=== PATIENT | female | born 2000 | race Caucasian/White ===

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

== ENCOUNTER 2024-06-16 12:19 | Emergency (ER) | payer BC ==
[2024-06-16] MEDS ORDERED: Sodium Chloride 0.9% 10 ML Syringe FLUSH PRN (12:20)
[2024-06-16 12:46] LABS: BASOPHILS ABSOLUTE AUTO 0.02 K/uL (0.00-0.20); BASOPHILS PERCENT AUTO 0.2 % (0.0-1.0); EOSINOPHILS ABSOLUTE AUTO 0.01 K/uL (0.00-0.45); EOSINOPHILS PERCENT AUTO 0.1 % (0.0-6.0); HEMATOCRIT 38.6 % (37.0-47.0); HEMOGLOBIN 13.5 g/dL (12.0-16.0); IMMATURE GRAN ABSOLUTE AUTO 0.02 K/uL (0.00-0.05); IMMATURE GRAN PERCENT AUTO 0.2 % (0.0-0.4); LYMPHOCYTES ABSOLUTE AUTO 0.75 K/uL (1.00-4.80); LYMPHOCYTES PERCENT AUTO 8.4 % (24.0-44.0); MEAN CORPUSCULAR HEMOGLOBIN 29.9 pg (28.0-32.0); MEAN CORPUSCULAR VOLUME 85.4 fL (83.0-99.0); MEAN PLATELET VOLUME 9.1 fL (9.4-12.3); MONOCYTES ABSOLUTE AUTO 0.76 K/uL (0.00-0.80); MONOCYTES PERCENT AUTO 8.6 % (0.0-8.0); NEUTROPHILS ABSOLUTE AUTO 7.32 K/uL (1.80-7.70); NEUTROPHILS PERCENT AUTO 82.5 % (41.0-71.0); PLATELET COUNT,PLT 227 K/uL (150-400); RED BLOOD CELL COUNT 4.52 M/uL (4.10-5.30); WHITE BLOOD CELL COUNT,WBC 8.88 K/uL (3.9-11.3)
[2024-06-16 13:28] LABS: A/G RATIO 0.7 (0.9-1.6); ALANINE AMINOTRANSFERASE,ALT 23 IU/L (14-63); ALBUMIN 3.3 g/dL (3.4-5.0); ALKALINE PHOSPHATASE 67 U/L (46-116); ASPARTATE AMNIOTRANSFERASE,AST 14 IU/L (15-37); BILIRUBIN TOTAL 0.5 mg/dL (0.2-1.0); BLOOD UREA NITROGEN,BUN 5 mg/dL (7.0-18.0); CALCIUM 9.3 mg/dL (8.5-10.1); CARBON DIOXIDE,CO2 23.4 mmol/L (21.0-32.0); CHLORIDE,CL 100 mmol/L (98-107); CREATININE 0.7 mg/dL (0.6-1.0); GLUCOSE RANDOM 122 mg/dL (74-106); LIPASE 120 U/L (16-77); POTASSIUM,K 3.9 mmol/L (3.5-5.1); PROTEIN TOTAL,TP 8.2 g/dL (6.4-8.2); SODIUM,NA 134 mmol/L (136-145)
[2024-06-16 13:29] LABS: ESTIMATED GFR 125 mL/min (>60)
[2024-06-16] MEDS: Ondansetron 4 MG Tab.DIS PO ONE (16:33)
[2024-06-16] MEDS: Sodium Chloride 0.9% 1,000 ML IV ONE (16:33)
== END 2024-06-16 17:20 | disposition home or self-care (01) ==
LOC: MW.ED 12:19
DX: O21.9 Vomiting of pregnancy, unspecified (principal); Z3A.11 11 weeks gestation of pregnancy; Z75.8 Other problems related to medical facilities and other health care
CPT/HCPCS: 36415; 80053; 83690; 84702; 85025; 96360; 99284; A9270; J7030; 99283

== ENCOUNTER 2024-06-29 14:01 | Emergency (ER) | payer BC ==
[2024-06-29] MEDS: Ondansetron 4 MG/2 ML SDV IVPUSH ONE ×2 (14:50→18:39)
[2024-06-29] MEDS: Dextrose 5%-0.9% NaCl 1,000 ML IV STA ×2 (14:50→18:40)
[2024-06-29 15:27] LABS: BASOPHILS ABSOLUTE AUTO 0.02 K/uL (0.00-0.20); BASOPHILS PERCENT AUTO 0.1 % (0.0-1.0); HEMATOCRIT 37.1 % (37.0-47.0); HEMOGLOBIN 12.9 g/dL (12.0-16.0); IMMATURE GRAN ABSOLUTE AUTO 0.05 K/uL (0.00-0.05); IMMATURE GRAN PERCENT AUTO 0.4 % (0.0-0.4); LYMPHOCYTES ABSOLUTE AUTO 1.33 K/uL (1.00-4.80); LYMPHOCYTES PERCENT AUTO 9.9 % (24.0-44.0); MEAN CORPUSCULAR HEMOGLOBIN 29.7 pg (28.0-32.0); MEAN CORPUSCULAR HGB CONC 34.8 g/dL (32.0-36.0); MEAN CORPUSCULAR VOLUME 85.5 fL (83.0-99.0); MEAN PLATELET VOLUME 9.6 fL (9.4-12.3); MONOCYTES ABSOLUTE AUTO 0.51 K/uL (0.00-0.80); MONOCYTES PERCENT AUTO 3.8 % (0.0-8.0); NEUTROPHILS ABSOLUTE AUTO 11.55 K/uL (1.80-7.70); NEUTROPHILS PERCENT AUTO 85.8 % (41.0-71.0); PLATELET COUNT,PLT 280 K/uL (150-400); RED BLOOD CELL COUNT 4.34 M/uL (4.10-5.30); WHITE BLOOD CELL COUNT,WBC 13.46 K/uL (3.9-11.3)
[2024-06-29 16:11] LABS: A/G RATIO 0.7 (0.9-1.6); ALBUMIN 3.3 g/dL (3.4-5.0); BILIRUBIN TOTAL 0.6 mg/dL (0.2-1.0); CALCIUM 9.4 mg/dL (8.5-10.1); CARBON DIOXIDE,CO2 15.4 mmol/L (21.0-32.0); CREATININE 0.6 mg/dL (0.6-1.0); EST CRCL DRUG DOSING (CG) 137.68 mL/min; POTASSIUM,K 3.7 mmol/L (3.5-5.1); PROTEIN TOTAL,TP 8.2 g/dL (6.4-8.2)
[2024-06-29] MEDS: Sodium Chloride 0.9% 1,000 ML IV ONE (16:21)
[2024-06-29 18:10] LABS: APPEARANCE,URINE CLEAR; BILIRUBIN,URINE NEGATIVE (NEGATIVE); COLOR,URINE YELLOW; GLUCOSE,URINE 500 mg/dL (NEGATIVE); KETONES,URINE >=80 mg/dL (NEGATIVE); LEUKOCYTE ESTERASE,URINE NEGATIVE (NEGATIVE); NITRITE,URINE NEGATIVE (NEGATIVE); OCCULT BLOOD,URINE NEGATIVE (NEGATIVE); PROTEIN,URINE NEGATIVE (NEGATIVE); UROBILINOGEN,URINE 0.2 EU/dL (<2.0)
== END 2024-06-29 18:48 | disposition home or self-care (01) ==
LOC: MW.ED 14:01
DX: O21.0 Mild hyperemesis gravidarum (principal); Z75.8 Other problems related to medical facilities and other health care
CPT/HCPCS: 36415; 80053; 81003; 84702; 85025; 96361; 96374; 96376; 99284; J2405; J7030; J7042

== ENCOUNTER 2024-12-23 05:38 | Inpatient (IN) | payer BC ==
[2024-12-23] MEDS ORDERED: Carboprost Tromethamine 250 MCG/1 mL Vial IM PRN (05:42)
[2024-12-23] MEDS ORDERED: Sodium Chloride 0.9% 2.5 ML Syringe FLUSH PRN (05:42)
[2024-12-23] MEDS ORDERED: Sodium Chloride 0.9% 10 ML Syringe FLUSH PRN (05:42)
[2024-12-23] MEDS ORDERED: Water For Irrigation,Sterile 1,000 ML Container IRR PRN (05:42)
[2024-12-23] MEDS ORDERED: Sodium Chloride 0.9% 20 ML SDV IV PRN (05:42)
[2024-12-23] MEDS ORDERED: Misoprostol 200 MCG Tab PO PRN (05:42)
[2024-12-23] MEDS ORDERED: Methylergonovine 0.2 MG/1 ML Amp IM PRN (05:42)
[2024-12-23] MEDS ORDERED: Lidocaine 1% 50 ML MDV INJECT PRN (05:42)
[2024-12-23] MEDS ORDERED: Oxytocin/0.9 % Sodium Chloride 30 UNIT/500 ML BAG IV SCH (05:45)
[2024-12-23 06:56] LABS: HEMATOCRIT 33.9 % (37.0-47.0); HEMOGLOBIN 10.9 g/dL (12.0-16.0); MEAN CORPUSCULAR HEMOGLOBIN 28.2 pg (28.0-32.0); MEAN CORPUSCULAR HGB CONC 32.2 g/dL (32.0-36.0); MEAN CORPUSCULAR VOLUME 87.8 fL (83.0-99.0); MEAN PLATELET VOLUME 10.7 fL (9.4-12.3); PLATELET COUNT,PLT 288 K/uL (150-400); RED BLOOD CELL COUNT 3.86 M/uL (4.10-5.30); WHITE BLOOD CELL COUNT,WBC 13.71 K/uL (3.9-11.3)
[2024-12-23] MEDS ORDERED: Misoprostol 25 MCG (1/4 of 100 MCG) Tab PO ONE (07:20)
[2024-12-23 07:32] LABS: A/G RATIO 0.5 (0.9-1.6); ALBUMIN 2.3 g/dL (3.4-5.0); BILIRUBIN TOTAL 0.2 mg/dL (0.2-1.0); CALCIUM 8.2 mg/dL (8.5-10.1); CARBON DIOXIDE,CO2 21.2 mmol/L (21.0-32.0); CREATININE 0.6 mg/dL (0.6-1.0); POTASSIUM,K 3.7 mmol/L (3.5-5.1); PROTEIN TOTAL,TP 6.9 g/dL (6.4-8.2)
[2024-12-23] MEDS: Misoprostol 25 MCG (1/4 of 100 MCG) Tab VAG ONE (07:55)
[2024-12-23] MEDS: Misoprostol 25 MCG (1/4 of 100 MCG) Tab VAG SCH (12:05)
[2024-12-24] MEDS: Lactated Ringers 1,000 ML IV SCH (01:05)
[2024-12-24] MEDS: Butorphanol 1 MG/ML SDV IVPUSH PRN (02:57)
[2024-12-24] MEDS: Ropivacaine HCl/PF 400 MG in Premix Bag 1 BAG EPIDUR SCH (06:45)
[2024-12-24] MEDS: Oxytocin/0.9 % Sodium Chloride 30 UNIT/500 ML BAG IV SCH (06:53)
[2024-12-24] MEDS ORDERED: ePHEDrine 50 MG/ML SDV IVPUSH PRN (06:58)
[2024-12-24] MEDS ORDERED: ePHEDrine 50 MG/ML SDV IM PRN (06:58)
[2024-12-24] MEDS ORDERED: dexmedeTOMIDine HCl 200 MCG/2 ML SDV EPIDUR SCH (07:00)
[2024-12-24] MEDS: Ondansetron 4 MG/2 ML SDV IVPUSH PRN (07:36)
[2024-12-24] MEDS: Phenylephrine HCl In 0.9% NaCl 1 MG/10 ML Syringe IVPUSH PRN (14:07)
[2024-12-24] MEDS: Ropivacaine HCl/PF 200 ML ONE (18:32)
[2024-12-24] MEDS: Phenylephrine HCl In 0.9% NaCl 1 MG/10 ML Syringe ONE (18:32)
[2024-12-24] MEDS: Bupivacaine 0.5% 10 ML SDV ONE (18:33)
[2024-12-24] MEDS: Citric Acid/Sodium Citrate Solution 30 ML Cup PO ONE ×2 (18:36→23:45)
[2024-12-25] MEDS ORDERED: Bupivacaine 0.5% 10 ML SDV ONE (02:22)
[2024-12-25] MEDS ORDERED: fentaNYL 100 MCG/2 ML SDV ONE (02:22)
[2024-12-25] MEDS ORDERED: Lidocaine 2% 5 ML SDV ONE (02:22)
[2024-12-25] MEDS ORDERED: Docusate Sodium 100 MG Cap PO PRN (10:38)
[2024-12-25] MEDS ORDERED: Misoprostol 200 MCG Tab RECTAL PRN (10:38)
[2024-12-25] MEDS ORDERED: Methylergonovine 0.2 MG/1 ML Amp IM PRN (10:38)
[2024-12-25] MEDS ORDERED: Lanolin 100% Cream 7 GM Tube TOP PRN (10:38)
[2024-12-25] MEDS ORDERED: Oxytocin/0.9 % Sodium Chloride 30 UNIT/500 ML BAG IV SCH (10:45)
[2024-12-25 11:02] LABS: PH,UMBILICAL ARTERIAL 7.37 (7.18-7.38); PH,UMBILICAL VENOUS 7.35 (7.25-7.45)
[2024-12-25] MEDS: Ibuprofen 800 MG Tab PO PRN (11:14)
[2024-12-25] MEDS: Witch Hazel Medicated Pads 40/Jar TOP PRN (11:16)
[2024-12-25] MEDS: Benzocaine/Menthol 20%-0.5% Spray 78 GM Cannister TOP PRN (11:16)
[2024-12-26] MEDS: Acetaminophen 500 MG Tab PO PRN (04:16)
[2024-12-26 06:19] LABS: HEMATOCRIT 28.2 % (37.0-47.0); HEMOGLOBIN 9.4 g/dL (12.0-16.0)
== END 2024-12-26 18:16 | disposition home or self-care (01) | DRG 560 ==
LOC: MW.OBCHECK 05:38 → MW.OB 05:40 → MW.OBCHECK 05:42 → MW.OB 05:42 → MW.MS 12-24 15:21 → MW.OB 12-24 15:28 → OBSVTOIN 12-25 10:38 → MW.OB 12-25 18:09
PROVIDERS: ADMIT Obstetrics & Gynecology; ATTEND Obstetrics & Gynecology
PROC: 10E0XZZ Delivery of Products of Conception, External Approach (ICD-10-PCS; principal; 2024-12-25)
PROC: 10907ZC Drainage of Amniotic Fluid, Therapeutic from Products of Conception, Via Natural or Artificial Opening (ICD-10-PCS; 2024-12-25)
PROC: 3E033VJ Introduction of Other Hormone into Peripheral Vein, Percutaneous Approach (ICD-10-PCS; 2024-12-25)
PROC: 0U7C7DJ Dilation of Cervix with Intraluminal Device, Temporary, Via Natural or Artificial Opening (ICD-10-PCS; 2024-12-25)
PROC: 3E0DXGC Introduction of Other Therapeutic Substance into Mouth and Pharynx, External Approach (ICD-10-PCS; 2024-12-25)
PROC: 3E0R3BZ Introduction of Anesthetic Agent into Spinal Canal, Percutaneous Approach (ICD-10-PCS; 2024-12-25)
PROC: 00HU33Z Insertion of Infusion Device into Spinal Canal, Percutaneous Approach (ICD-10-PCS; 2024-12-25)
PROC: 10H07YZ Insertion of Other Device into Products of Conception, Via Natural or Artificial Opening (ICD-10-PCS; 2024-12-25)
DX: O40.3XX0 Polyhydramnios, third trimester, not applicable or unspecified (principal); Z37.0 Single live birth; O70.0 First degree perineal laceration during delivery; Z90.89 Acquired absence of other organs; Z3A.39 39 weeks gestation of pregnancy
CPT/HCPCS: 36415; 51702; 59025; 59200; 59409; 76805; 76805-26; 80053; 82803; 85014; 85018; 85027; 86592; 86850; 86900; 86901; A9270-GY; J0595; J0665; J2003; J2371; J2405; J2590; J2795; J3010; J7120